=== PATIENT | male | born 1940 ===

== ENCOUNTER 2016-12-17 02:35 | Inpatient (IN) | payer MEDICARE, OTHER, MEDICAID ==
[2016-12-17] MEDS: NS 0.9% 1000 ML* 1,000 ML IV SCH ×3 (04:08→22:34)
[2016-12-17] MEDS ORDERED: Albuterol 2.5 MG/3 ML NEB.SOL* (0.083%) INH PRN (06:00)
[2016-12-17] MEDS: Heparin VIAL(*) 5000 UNITS/ML VIAL (FIVE THOUSAND) SUBCUT SCH ×3 (06:29→21:25)
[2016-12-17 07:40] LABS: Hematocrit 33 % (42-52); Hemoglobin 11.1 g/dl (14.0-18.0); Mean Corpuscular HGB Conc 33 g/dl (31-36); Mean Corpuscular Hemoglobin 31 pg (27-31); Mean Corpuscular Volume 92 fL (80-94); Mean Platelet Volume 9 um3 (7.4-10.4); Red Blood Count 3.62 10^6/ul (4.0-5.4); Red Cell Distribution Width 15 % (10.5-15)
[2016-12-17 07:52] LABS: Albumin 3.7 g/dL (3.2-5.2); BUN/Creatinine Ratio 21.7 (8-20); Calcium 8.7 mg/dL (8.6-10.3); EGFR African American 41.4 (>60); EGFR Non-African American 32.2 (>60); Globulin 2.7 g/dL (2-4); Potassium 3.7 mmol/L (3.5-5.0); Total Bilirubin 0.4 mg/dL (0.2-1.0); Total Protein 6.4 g/dL (6.4-8.9)
--- NOTE | 2016-12-17 08:32 | PN ---
Subjective Date of Service: 12/17/16 Interval History: Pt had been having 4-5 BM's/day x 3 months. Denies abd pain. Was on approx 2 courses of antibiotics last winter for bronchitis. At [facility] he ambulates with a cane. Surrogate-son Gonzalez (lives in [place], [place]) Objective Active Medications: Albuterol (Ventolin Hfa Inhaler*) 2 puff INH QID PRN PRN Reason: SOB/WHEEZING Albuterol (Ventolin 2.5 Mg/3 Ml Neb.Theresa*) 2.5 mg INH Q4H PRN PRN Reason: SOB/WHEEZING Allopurinol (Zyloprim Tab*) 300 mg PO DAILY [facility] Atenolol (Tenormin Tab*) 100 mg PO DAILY [facility] Atorvastatin Calcium (Lipitor*) 40 mg PO DAILY [facility] Cholecalciferol (Vitamin D Tab*) 800 unit PO DAILY [facility] Dicyclomine HCl (Bentyl Cap*) 10 mg PO TID [facility] Diltiazem HCl (Cardizem Cd Cap*) 120 mg PO BID [facility] Dipyridamole/Aspirin (Aggrenox 25/200*) 1 cap.er PO BID [facility] Heparin Sodium (Porcine) (Heparin Vial(*)) 5,000 units SUBCUT Q8HR [facility] Last Admin: 12/17/16 06:29 Dose: 5,000 units Sodium Chloride (Ns 0.9% 1000 Ml*) 1,000 mls @ 125 mls/hr IV PER RATE [facility] Last Admin: 12/17/16 04:08 Dose: 125 mls/hr Isosorbide Mononitrate (Imdur Er Tab*) 30 mg PO DAILY [facility] Mometasone Furoate/Formoterol Fumar (Dulera 100/5 Mdi*) 1 puff INH BID [facility] Montelukast Sodium (Singulair Tab*) 10 mg PO DAILY [facility] Multivitamins (Theragran Tab*) 1 tab PO DAILY [facility] Omeprazole (Prilosec Cap*) 20 mg PO BID [facility] Sertraline HCl (Zoloft*) 25 mg PO DAILY [facility] Terazosin HCl (Hytrin Cap*) 2 mg PO DAILY [facility] Vitamin E (Vitamin E Cap*) 400 unit PO BID [facility] Vital Signs 12/17/16 12/17/16 03:29 03:35 Temperature 98.3 F Pulse Rate 81 Respiratory 20 20 Rate Blood Pressure 153/82 (mmHg) O2 Sat by Pulse 100 Oximetry Oxygen Devices in Use Now: None Appearance: 75 yo M in nAD, AAOx3 Eyes: No Scleral Icterus, PERRLA Ears/Nose/Mouth/Throat: NL Teeth, Lips, Gums, Mucous Membranes Moist Neck: NL Appearance and Movements; NL JVP, Trachea Midline Respiratory: Symmetrical Chest Expansion and Respiratory Effort, Clear to Auscultation Cardiovascular: NL Sounds; No Murmurs; No JVD, RRR Abdominal: - - distended, soft, NR, BS+ Extremities: No Edema, No Clubbing, Cyanosis Skin: No Rash or Ulcers, No Nodules or Sclerosis Neurological: Alert and Oriented x 3, NL Muscle Strength and Tone Result Diagrams: 12/17/16 06:57 12/17/16 06:57 Assess/Plan/Problems-Billing Assessment: 75 yo M with h/o DM2, HTN, CAD, COPD(not on 02), gout, CHF, PSVT, prostate ca(prostatectomy 2013) transferred from [place] for diarrhea and KANU. Recent dx of UTI tx with Cipro - Patient Problems (1) Diarrhea Comment: Stool C. Diff, lactoferin pending. CT reviewed from [place] shows atrophic left kidney, no bowel abn. (2) HTN (hypertension) Comment: SBP's in 150's before AM meds. Cont Cardizem and Adjust Atenolol dose to KANU(from BID to daily.) (3) KANU (acute kidney injury) Comment: due to dehydration , on 12/16/16 creat at 2.6, today down to 2 cont IVF UA at [place] unremarkable (4) COPD (chronic obstructive pulmonary disease) Comment: Not in exacerbation, cont current inhalers (5) Dyslipidemia Comment: cont Lipitor (6) DVT prophylaxis Comment: heparin sc Status and Disposition: inpatient
[2016-12-17] MEDS: Mometasone/Formoter 100/5 MDI INH SCH ×3 (08:35→19:59)
[2016-12-17] MEDS ORDERED: Atenolol TAB* 50 MG PO SCH (09:00)
[2016-12-17] MEDS ORDERED: Albuterol HFA INHALER* 8 gm MDI INH PRN (09:00)
[2016-12-17] MEDS: Vitamin E CAP* 400 UNIT PO SCH ×2 (09:41→21:24)
[2016-12-17] MEDS: Cholecalciferol TAB* 400 UNIT PO SCH (09:41)
[2016-12-17] MEDS: Isosorbide Mononitrate ER TAB* 30 MG PO SCH (09:42)
[2016-12-17] MEDS: Omeprazole CAP* 20 MG PO SCH ×2 (09:42→21:24)
[2016-12-17] MEDS: Vitamin THERAPEUTIC TAB PO SCH (09:42)
[2016-12-17] MEDS: Terazosin CAP* 1 MG PO SCH (09:42)
[2016-12-17] MEDS: Dicyclomine CAP* 10 MG PO SCH ×3 (09:44→21:24)
[2016-12-17] MEDS: Sertraline* 25 MG TAB PO SCH (09:45)
[2016-12-17] MEDS: Diltiazem CD CAP* 120 MG PO SCH ×2 (09:45→21:25)
[2016-12-17] MEDS: Dipyridamole/Aspirin 25/200* CAP.ER PO SCH ×2 (09:46→21:24)
[2016-12-17] MEDS: Atorvastatin* 40 MG TAB PO SCH (09:46)
[2016-12-17] MEDS: Atenolol TAB* 50 MG PO SCH (09:46)
[2016-12-17] MEDS: Allopurinol TAB* 300 MG PO SCH (09:47)
[2016-12-17] MEDS: Montelukast Sodium TAB* 10 MG PO SCH (09:49)
[2016-12-17 15:14] LABS: C Reactive Protein 10.54 mg/L (< 5.00)
--- NOTE | 2016-12-17 15:17 | HP ---
CC: Dr. Maradiaga * HISTORY AND PHYSICAL: DATE OF ADMISSION: 12/17/16 PRIMARY CARE PHYSICIAN: Dr. Maradiaga. CHIEF COMPLAINT: Diarrhea and weakness. HISTORY OF PRESENT ILLNESS: The patient is a 75-year-old gentleman who is a resident of [facility], who presented to [facility] ER today and he complained of diarrhea that he has had for approximately 2 weeks. He states it started 2 weeks ago, woke him up, and he has had about 6 to 7 bowel movements a day that are very watery. Occasionally, it is like pudding. It does not seem to be in any relation to what he is eating. He denies any belly pain. He has nausea but no vomiting. He denies any fevers or chills. His legs ache at times but that is it. Tonight he came in because he could not take it anymore. He has taken Kaopectate a number of times. Sometime in the past, he has been on Imodium when he has had diarrhea, but not this time. Of note, the patient was in the ER a few days ago and was told that he had UTI and placed on Cipro for 3 days, but the diarrhea started before that. He has completed his course of Cipro and his urinalysis was apparently unremarkable at [facility]. PAST MEDICAL HISTORY: Significant for recently diagnosed asthma, type 2 diabetes, hyperlipidemia, coronary artery disease, COPD, arthritis which is gouty, congestive heart failure, CVA, mild dementia, GERD, GI bleed in the past , SVT, prostate cancer. PAST SURGICAL HISTORY: Significant for angioplasty, prostatectomy, umbilical hernia repair. CURRENT MEDICATIONS: 1. Vitamin E 400 units twice daily. 2. Terazosin 2 mg daily. 3. Zoloft 25 mg daily. 4. Omeprazole 20 mg twice daily. 5. [place]-3 fatty acid 1 capsule daily. 6. Multivitamin 1 capsule daily. 7. Singulair 10 mg daily. 8. Imdur 30 mg daily. 9. Furosemide 20 mg daily. 10. Advair Diskus 100/50 one puff twice daily. 11. Diltiazem CD 120 mg daily. 12. Dicyclomine 10 mg 3 times a day. 13. Cholecalciferol 800 units daily. 14. Lipitor 40 mg daily. 15. Atenolol 100 mg twice daily. 16. Aggrenox 1 capsule twice daily. 17. Allopurinol 300 mg daily. 18. Albuterol sulfate 1 puffs 4 times a day and via nebulizer q.4 hours as needed. FAMILY HISTORY: Reviewed and noncontributory. SOCIAL HISTORY: Smokes a few cigarettes a day still, used to smoke 2 packs a day. No alcohol or recreational drug use. He the ID. He is now a resident at [facility]. He is a with 4 sons and 2 daughters. His son, Gonzalez Amaya, is his healthcare proxy. REVIEW OF SYSTEMS: A 14-point review of systems was completed with the patient. All pertinent positives and negatives are in the history of present illness, otherwise it is negative. PHYSICAL EXAMINATION GENERAL: Pleasant gentleman, lying in bed, in no acute distress. VITAL SIGNS: Temperature 98.2 degrees, heart rate 81 beats per minute, respiratory rate 20 breaths per minute, pulse oximetry 100%, blood pressure 153/ 82. HEENT: Normocephalic and atraumatic. Pupils are equal, round and reactive to light. Dry mucous membranes. NECK: Supple. No JVD, bruits, palpable thyroid or lymphadenopathy. CHEST: Clear to auscultation and percussion bilaterally. CARDIOVASCULAR: S1, S2 appreciated. ABDOMEN: Positive bowel sounds in all 4 quadrants. Soft, nontender, nondistended. EXTREMITIES: No cyanosis or clubbing. Mild edema. +2 pulses bilaterally. NEUROLOGIC: Alert and oriented x3. Moves all extremities. SKIN: No rashes. No distinct abnormalities. LABORATORY DATA: From the [facility]: Sodium 134, potassium 3.6, chloride 103, CO2 17, BUN 54, creatinine 2.6, glucose is 177. White count 6.62 , hemoglobin 11.5, hematocrit 32.3, his platelets are 120,000. His urinalysis is unremarkable. Stool for occult blood is negative. CT of abdomen and pelvis was interpreted by the radiologist as no findings to explain the patient's symptoms. Small right lower lobe infiltrate or atelectasis, fatty liver, atrophic kidney, and degenerative changes of the spine. ASSESSMENT AND PLAN: 1. Diarrhea, has been going on for 2 weeks. Unclear if it is infectious or not , but that is a bit long for an infectious process. He says he does not have a history of any GI problems, but he is on dicyclomine which implies that he may have IBS. For now, we will get a stool for O and P, C and S, and fecal leukocytes. I will hydrate him with normal saline at 125 cc an hour, but I will hold off on any Imodium at this time until we get some labs results back. Consider GI consult if no improvement and no definitive diagnosis can be made. 2. Acute kidney injury, almost certainly secondary to dehydration. We will rehydrate and check labs in the a.m. 3. History of cerebrovascular accident. Continue Aggrenox. Continue Lipitor. 4. Questionable history of diabetes. His sugar is somewhat high, but he is not on any medications that I can see. We will check hemoglobin A1c. 5. Asthma. Continue albuterol and Singulair. Appears stable. 6. Depression. Continue Zoloft. 7. Gout, stable. Continue allopurinol. 8. FEN. We will place on regular diet depending on his sugars. Normal saline at 100 cc an hour. 9. DVT prophylaxis. Heparin subcu. 10. The patient is a full code. TIME SPENT: Over 75 minutes were spent on this H and P, more than 40 minutes of which were spent in direct [id number] contact with the patient in evaluation, physical exam, counseling, and coordination of care. [id number]/[facility] #: [id number] SKY
[2016-12-18 05:14] LABS: Hematocrit 30 % (42-52); Hemoglobin 10.2 g/dl (14.0-18.0); Mean Corpuscular HGB Conc 34 g/dl (31-36); Mean Corpuscular Hemoglobin 31 pg (27-31); Mean Corpuscular Volume 92 fL (80-94); Mean Platelet Volume 8 um3 (7.4-10.4); Red Cell Distribution Width 16 % (10.5-15)
[2016-12-18 05:36] LABS: BUN/Creatinine Ratio 18.3 (8-20); Calcium 8.5 mg/dL (8.6-10.3); EGFR African American 52.9 (>60); EGFR Non-African American 41.2 (>60); Potassium 3.7 mmol/L (3.5-5.0)
[2016-12-18] MEDS: Heparin VIAL(*) 5000 UNITS/ML VIAL (FIVE THOUSAND) SUBCUT SCH ×3 (05:39→22:08)
[2016-12-18] MEDS: Omeprazole CAP* 20 MG PO SCH ×2 (07:55→22:08)
[2016-12-18] MEDS: Vitamin E CAP* 400 UNIT PO SCH ×2 (07:55→22:07)
[2016-12-18] MEDS: Terazosin CAP* 1 MG PO SCH (07:56)
[2016-12-18] MEDS: Dicyclomine CAP* 10 MG PO SCH ×3 (07:56→22:07)
[2016-12-18] MEDS: Dipyridamole/Aspirin 25/200* CAP.ER PO SCH ×2 (07:56→22:07)
[2016-12-18] MEDS: Vitamin THERAPEUTIC TAB PO SCH (07:56)
[2016-12-18] MEDS: Isosorbide Mononitrate ER TAB* 30 MG PO SCH (07:56)
[2016-12-18] MEDS: Cholecalciferol TAB* 400 UNIT PO SCH (07:57)
[2016-12-18] MEDS: Atenolol TAB* 50 MG PO SCH (07:57)
[2016-12-18] MEDS: Diltiazem CD CAP* 120 MG PO SCH ×2 (07:57→22:07)
[2016-12-18] MEDS: Montelukast Sodium TAB* 10 MG PO SCH (07:57)
[2016-12-18] MEDS: Atorvastatin* 40 MG TAB PO SCH (07:57)
[2016-12-18] MEDS: Allopurinol TAB* 300 MG PO SCH (07:57)
[2016-12-18] MEDS: Sertraline* 25 MG TAB PO SCH (07:57)
[2016-12-18] MEDS: Mometasone/Formoter 100/5 MDI INH SCH ×2 (09:13→20:59)
[2016-12-18] MEDS: Lactobacillus Acidophilu (GG)* 1 CAP CAP PO SCH ×2 (10:14→22:07)
--- NOTE | 2016-12-18 11:52 | PN ---
Subjective Date of Service: 12/18/16 Interval History: pt feels better, denies abd pain, las BM yesterday. Had been ambulating with a cane to bathroom Objective Active Medications: Albuterol (Ventolin Hfa Inhaler*) 2 puff INH QID PRN PRN Reason: SOB/WHEEZING Albuterol (Ventolin 2.5 Mg/3 Ml Neb.Theresa*) 2.5 mg INH Q4H PRN PRN Reason: SOB/WHEEZING Allopurinol (Zyloprim Tab*) 300 mg PO DAILY [facility] Last Admin: 12/18/16 07:57 Dose: 300 mg Atenolol (Tenormin Tab*) 100 mg PO DAILY [facility] Last Admin: 12/18/16 07:57 Dose: 100 mg Atorvastatin Calcium (Lipitor*) 40 mg PO DAILY [facility] Last Admin: 12/18/16 07:57 Dose: 40 mg Cholecalciferol (Vitamin D Tab*) 800 unit PO DAILY [facility] Last Admin: 12/18/16 07:57 Dose: 800 unit Dicyclomine HCl (Bentyl Cap*) 10 mg PO TID [facility] Last Admin: 12/18/16 07:56 Dose: 10 mg Diltiazem HCl (Cardizem Cd Cap*) 120 mg PO BID [facility] Last Admin: 12/18/16 07:57 Dose: 120 mg Dipyridamole/Aspirin (Aggrenox 25/200*) 1 cap.er PO BID [facility] Last Admin: 12/18/16 07:56 Dose: 1 cap.er Heparin Sodium (Porcine) (Heparin Vial(*)) 5,000 units SUBCUT Q8HR [facility] Last Admin: 12/18/16 05:39 Dose: 5,000 units Isosorbide Mononitrate (Imdur Er Tab*) 30 mg PO DAILY [facility] Last Admin: 12/18/16 07:56 Dose: 30 mg Lactobacillus Rhamnosus (Culturelle*) 1 cap PO BID [facility] Last Admin: 12/18/16 10:14 Dose: 1 cap Mometasone Furoate/Formoterol Fumar (Dulera 100/5 Mdi*) 1 puff INH BID [facility] Last Admin: 12/18/16 09:13 Dose: 1 puff Montelukast Sodium (Singulair Tab*) 10 mg PO DAILY [facility] Last Admin: 06/30/17 07:57 Dose: 10 mg Multivitamins (Theragran Tab*) 1 tab PO DAILY [facility] Last Admin: 12/18/16 07:56 Dose: 1 tab Omeprazole (Prilosec Cap*) 20 mg PO BID [facility] Last Admin: 12/18/16 07:55 Dose: 20 mg Sertraline HCl (Zoloft*) 25 mg PO DAILY [facility] Last Admin: 12/18/16 07:57 Dose: 25 mg Terazosin HCl (Hytrin Cap*) 2 mg PO DAILY [facility] Last Admin: 12/18/16 07:56 Dose: 2 mg Vitamin E (Vitamin E Cap*) 400 unit PO BID [facility] Last Admin: 12/18/16 07:55 Dose: 400 unit Vital Signs 12/17/16 12/17/16 12/17/16 13:52 15:29 19:37 Temperature 97.9 F 99.3 F Pulse Rate 73 79 Respiratory 16 16 20 Rate Blood Pressure 129/68 133/62 (mmHg) O2 Sat by Pulse 97 97 Oximetry 12/17/16 12/17/16 12/17/16 20:00 20:02 21:24 Temperature Pulse Rate 87 Respiratory 26 24 Rate Blood Pressure (mmHg) O2 Sat by Pulse 98 Oximetry 12/17/16 12/17/16 12/18/16 23:09 23:24 03:15 Temperature 98.3 F 98.8 F Pulse Rate 84 80 Respiratory 16 24 16 Rate Blood Pressure 155/75 155/72 (mmHg) O2 Sat by Pulse 97 97 Oximetry 12/18/16 12/18/16 12/18/16 07:53 07:56 09:15 Temperature 98.1 F Pulse Rate 81 82 Respiratory 16 16 20 Rate Blood Pressure 155/68 (mmHg) O2 Sat by Pulse 98 97 Oximetry 12/18/16 09:56 Temperature Pulse Rate Respiratory 17 Rate Blood Pressure (mmHg) O2 Sat by Pulse Oximetry Oxygen Devices in Use Now: None Appearance: 75 yo M in nAD, AAOx3 Eyes: No Scleral Icterus, PERRLA Ears/Nose/Mouth/Throat: NL Teeth, Lips, Gums, Mucous Membranes Moist Neck: NL Appearance and Movements; NL JVP, Trachea Midline Respiratory: Symmetrical Chest Expansion and Respiratory Effort, Clear to Auscultation Cardiovascular: NL Sounds; No Murmurs; No JVD, RRR Abdominal: NL Sounds; No Tenderness; No Distention, No Hepatosplenomegaly Lymphatic: No Cervical Adenopathy Extremities: No Edema, No Clubbing, Cyanosis Skin: No Rash or Ulcers, No Nodules or Sclerosis Neurological: Alert and Oriented x 3, NL Muscle Strength and Tone Result Diagrams: 12/18/16 04:45 12/18/16 04:44 Microbiology and Other Data: Microbiology 12/17/16 18:20 Stool Gross Appearance - Final Stool 12/17/16 18:20 Stool Gross Appearance - Final Stool Stool Lactoferrin - Final 12/17/16 18:20 Stool Gross Appearance - Final Stool C. difficile DNA Amplification - Final 027 Presumptive NEGATIVE Toxigenic C.diff NEGATIVE Assess/Plan/Problems-Billing Assessment: 75 yo M with h/o DM2, HTN, CAD, COPD(not on 02), gout, CHF, PSVT, prostate ca(prostatectomy 2013) transferred from [place] for diarrhea and KANU. Recent dx of UTI tx with Cipro - Patient Problems (1) Diarrhea Comment: Stool C. Diff neg. Fecal lactoferin positive. Diarrrhea improved on probiotics. suspect antibiotic associated CT reviewed from [place] shows atrophic left kidney, no bowel abn. (2) HTN (hypertension) Comment: SBP's in 150's before AM meds. Cont Cardizem and adjusted Atenolol dose to KANU(from BID to daily.) (3) KANU (acute kidney injury) Comment: due to dehydration , on 12/16/16 creat at 2.6, today down to 1.6 cont IVF UA at [place] unremarkable (4) COPD (chronic obstructive pulmonary disease) Comment: Not in exacerbation, cont current inhalers (5) Dyslipidemia Comment: cont Lipitor (6) DVT prophylaxis Comment: heparin sc Status and Disposition: inpatient, plan to d/c to [facility] in AM
[2016-12-18] MEDS: NS 0.9% 1000 ML* 1,000 ML IV SCH ×2 (13:00→22:06)
--- NOTE | 2016-12-18 20:36 | RAD ---
Indication: Recent onset shortness of breath. COPD. Comparison: No relevant prior exams available on the [facility] PACS for comparison. Technique: Upright AP 2006 hours Report: Elevated lung volumes and both diffuse mild prominence of the interstitial markings and patchy rarefaction of the mid to upper lung zone interstitial markings. No focal pulmonary lesion, compelling alveolar consolidation, pleural effusion, pneumothorax. Negative for cardiomegaly. Unremarkable central pulmonary vasculature. Mildly tortuous descending thoracic aorta. Suggestion of fixation hardware at the RIGHT humeral head. IMPRESSION: Stigmata of obstructive lung disease. No acute pulmonary or cardiac process evident.
[2016-12-19] MEDS: Heparin VIAL(*) 5000 UNITS/ML VIAL (FIVE THOUSAND) SUBCUT SCH ×2 (05:41→12:18)
[2016-12-19 06:13] LABS: BUN/Creatinine Ratio 13.5 (8-20); Calcium 8.8 mg/dL (8.6-10.3); EGFR African American 56.5 (>60); EGFR Non-African American 43.9 (>60); Potassium 3.9 mmol/L (3.5-5.0)
[2016-12-19] MEDS: Isosorbide Mononitrate ER TAB* 30 MG PO SCH (07:56)
[2016-12-19] MEDS: Atenolol TAB* 50 MG PO SCH (07:56)
[2016-12-19] MEDS: Dipyridamole/Aspirin 25/200* CAP.ER PO SCH (07:56)
[2016-12-19] MEDS: Terazosin CAP* 1 MG PO SCH (07:56)
[2016-12-19] MEDS: Atorvastatin* 40 MG TAB PO SCH (07:56)
[2016-12-19] MEDS: Lactobacillus Acidophilu (GG)* 1 CAP CAP PO SCH (07:56)
[2016-12-19] MEDS: Vitamin E CAP* 400 UNIT PO SCH (07:56)
[2016-12-19] MEDS: Dicyclomine CAP* 10 MG PO SCH ×2 (07:56→13:10)
[2016-12-19] MEDS: Cholecalciferol TAB* 400 UNIT PO SCH (07:56)
[2016-12-19] MEDS: Omeprazole CAP* 20 MG PO SCH (07:56)
[2016-12-19] MEDS: Vitamin THERAPEUTIC TAB PO SCH (07:57)
[2016-12-19] MEDS: Diltiazem CD CAP* 120 MG PO SCH (07:57)
[2016-12-19] MEDS: Sertraline* 25 MG TAB PO SCH (07:57)
[2016-12-19] MEDS: Montelukast Sodium TAB* 10 MG PO SCH (07:57)
[2016-12-19] MEDS: Allopurinol TAB* 300 MG PO SCH (07:57)
[2016-12-19 08:05] VITALS: BP 151/78
[2016-12-19] MEDS: Mometasone/Formoter 100/5 MDI INH SCH ×2 (09:00→20:52)
--- NOTE | 2016-12-20 11:27 | DS ---
CC: Dr. Maradiaga* DISCHARGE SUMMARY: DATE OF ADMISSION: 12/17/16 DATE OF DISCHARGE: 12/19/16 PRIMARY CARE PROVIDER: Dr. Maradiaga. DISCHARGE DIAGNOSES: 1. Acute renal failure due to dehydration and diarrhea. 2. Diarrhea, most likely antibiotic associated that resolved after probiotic treatment. SECONDARY DIAGNOSES: 1. Diet-controlled diabetes. 2. Asthma. 3. Hyperlipidemia. 4. Coronary artery disease. 5. Gouty arthritis. 6. History of congestive heart failure. 7. History of cerebrovascular accident. 8. Mild dementia. 9. Gastroesophageal reflux disease. 10. History of prostate cancer. MEDICATIONS AT DISCHARGE: 1. Probiotic, Culturelle 1 tablet p.o. b.i.d. 2. Albuterol two puffs 4 times a day p.r.n. 3. Imdur 30 mg daily. 4. Allopurinol 300 mg daily. 5. Aspirin with dipyridamole, which is Aggrenox 1 capsule b.i.d. 6. Atenolol 100 mg b.i.d. 7. Lipitor 40 mg daily. 8. Vitamin D 800 units daily. 9. Bentyl 10 mg t.i.d. p.r.n. 10. Diltiazem ER 120 mg b.i.d. 11. Advair 100/50 one inhalation b.i.d. 12. Lasix 20 mg daily to be restarted on 12/24/16. 13. Singulair 10 mg daily. 14. Multivitamin 1 tablet daily. 15. [place]-3 fatty acids 1 capsule daily. 16. Prilosec 20 mg b.i.d. 17. Zoloft 25 mg daily. 18. Terazosin 2 mg daily. 19. Vitamin E 400 units b.i.d. LABORATORY DATA AND STUDIES PERFORMED DURING THE HOSPITAL STAY: Include: On 12/19/16, sodium of 138, potassium 3.9, chloride 114, carbon dioxide 18, BUN 25, creatinine 1.55. Hemoglobin A1c was 7.2 noted on 12/17/16. CBC: White blood cell count of 7.0, hemoglobin 10.2, hematocrit of 30, and platelets of 113. Portable chest x-ray noted on 12/18/16. Impression: "Stigmata of obstructive lung disease. No acute pulmonary or cardiac process evident." HOSPITALIZATION COURSE: Mr. Daniel Amaya is a 75-year-old male with history of mild dementia who is a resident of [facility] and who has had problems with diarrhea for approximately a month now. Recently that was exacerbated by use of ciprofloxacin for urinary tract infection. The patient presented with complaints of generalized weakness to [facility]. Due to no bed available at [facility], the patient was transferred to [facility] for further evaluation. He was noted to have acute kidney injury, most likely due to dehydration with creatinine of 2.6 at presentation. Urinalysis obtained at [facility] was unremarkable. His diarrhea resolved after ciprofloxacin was discontinued and probiotics were started. He continued on to be treated with intravenous fluids until the time of discharge where his creatinine was down to 1.55. I suspect that his creatinine will improve more so within the next couple of days. His Lasix was held throughout his hospitalization and it was recommended for the patient to have it restarted approximately 5 days after his hospital stay. Stool studies performed showed negative for C. diff, negative for Shiga toxin, Cryptosporidium and Giardia. It was positive for fecal lactoferrin. After discharge the patient was recommended to follow with his primary care provider in approximately 4 to 7 days. PHYSICAL EXAMINATION AT THE TIME OF DISCHARGE: Vitals Signs: Blood pressure 151/78, heart rate of 74, respiratory rate 28, oxygen saturation 96% on room air , temperature of 98.6. General: This is a very pleasant 75-year-old male who is in no acute distress. Alert, awake and oriented x3. HEENT: Head is atraumatic, normocephalic. Eyes: Pupils equal and reactive to light and accommodation. Oropharynx clear. Mucosa moist. Neck: Supple. No JVD. No bruits bilaterally. Cardiovascular: Regular rate and rhythm. No murmurs. Respiratory: Clear to auscultation bilaterally. Abdomen: Soft, nontender. Bowel sounds present in all 4 quadrants. Extremities: There is no edema. Pulses +2 bilaterally. No clubbing or cyanosis. Neuro Evaluation: Speech clear. Cranial nerves II through XII grossly intact. Motor strength is 5/5 bilaterally. Please note this is a short summary of the patient's hospitalization. Please refer to further medical records for details. TIME SPENT: Approximately 40 minutes was spent on the patient's discharge. [id number]/[facility] #: [id number] [facility]
== END 2016-12-20 04:49 | DRG 683 ==
LOC: MED 03:10
PROVIDERS: ADMIT Internal Medicine; ATTEND Internal Medicine
DX: N17.9 Acute kidney failure, unspecified (principal); K52.1 Toxic gastroenteritis and colitis; I50.9 Heart failure, unspecified; F03.90 Unspecified dementia, unspecified severity, without behavioral disturbance, psychotic disturbance, mood disturbance, and anxiety; J44.9 Chronic obstructive pulmonary disease, unspecified; E86.0 Dehydration; T36.95XA Adverse effect of unspecified systemic antibiotic, initial encounter; Y92.9 Unspecified place or not applicable; X58.XXXA Exposure to other specified factors, initial encounter; E11.9 Type 2 diabetes mellitus without complications; E78.5 Hyperlipidemia, unspecified; I25.10 Atherosclerotic heart disease of native coronary artery without angina pectoris; M10.9 Gout, unspecified; K21.9 Gastro-esophageal reflux disease without esophagitis; F32.9 Major depressive disorder, single episode, unspecified; K76.0 Fatty (change of) liver, not elsewhere classified; F17.210 Nicotine dependence, cigarettes, uncomplicated; Z86.73 Personal history of transient ischemic attack (TIA), and cerebral infarction without residual deficits; Z85.46 Personal history of malignant neoplasm of prostate; Z79.01 Long term (current) use of anticoagulants; Z79.899 Other long term (current) drug therapy
CPT/HCPCS: 36415; 71010; 80048; 80053; 83036; 83630; 85025; 85610; 85730; 86140; 87045; 87046; 87177; 87209; 87328; 87329; 87493; 87899; 94640; A9270-GY; J1644

== ENCOUNTER 2020-07-03 02:17 | Inpatient (IN) ==
[2020-07-03 03:34] LABS: Urine Appearance Cloudy; Urine Bilirubin Negative (Negative); Urine Blood Negative (Negative); Urine Color Yellow; Urine Glucose Negative (Negative); Urine Ketones Negative (Negative); Urine Nitrite Negative (Negative); Urine Protein 2+(100 mg/dL) (Negative); Urine Specific Gravity 1.015 (1.010-1.030); Urine Urobilinogen Negative (Negative)
[2020-07-03 03:40] LABS: Urine Bacteria 1+ (Absent); Urine Red Blood Cell Trace(0-2/hpf) (Absent); Urine Renal Epithelial Cells Present (Absent); Urine Squamous Epithelial Cell Present (Absent); Urine White Blood Cell 3+(>20/hpf) (Absent)
[2020-07-03] MEDS ORDERED: Dextrose 50% Syringe 50 ml 25 GM/50 ML SYRINGE IV PUSH PRN (04:53)
[2020-07-03] MEDS ORDERED: Enoxaparin 40 MG/0.4 ML SYR SUBCUT SCH (06:00)
[2020-07-03 07:07] LABS: ABS Basophils 0.1 10^3/ul (0-0.2); ABS Eosinophils 0.3 10^3/ul (0-0.6); ABS Lymphocytes 0.9 10^3/ul (1.0-4.8); Eosinophil % 3.6 %; Hematocrit 38 % (42-52); Hemoglobin 13.1 g/dL (14.0-18.0); Mean Corpuscular HGB Conc 34 g/dL (31-36); Mean Corpuscular Hemoglobin 33 pg (27-31); Mean Corpuscular Volume 95 fL (80-94); Mean Platelet Volume 8.3 fL (7.4-10.4); Platelet Count 130 10^3/uL (150-450); Red Blood Count 4.02 10^6 /uL (4.18-5.48); Red Cell Distribution Width 14 % (10-15); White Blood Count 8.3 10^3/uL (3.5-10.8)
[2020-07-03] MEDS ORDERED: Lactated Ringers 1000 ml BAG 1,000 ML IV ONE (07:16)
[2020-07-03 07:19] LABS: ALT 46 U/L (7-52); AST 60 U/L (13-39); Albumin 4.1 g/dL (3.2-5.2); Albumin/Globulin Ratio 1.8 (1-3); Alkaline Phosphatase 100 U/L (34-104); Anion Gap 9 mmol/L (2-11); BUN/Creatinine Ratio 20.9 (8-20); Blood Urea Nitrogen 23 mg/dL (6-24); C Reactive Protein 5.81 mg/L (<8.01); CO2 Carbon Dioxide 23 mmol/L (22-32); Calcium 9.4 mg/dL (8.6-10.3); Chloride 105 mmol/L (101-111); EGFR African American 78.1 (>60); EGFR Non-African American 64.6 (>60); Globulin 2.3 g/dL (2-4); Glucose 156 mg/dL (70-100); Magnesium 1.7 mg/dL (1.9-2.7); Potassium 4.1 mmol/L (3.5-5.0); Sodium 137 mmol/L (135-145); Total Protein 6.4 g/dL (6.4-8.9)
[2020-07-03] MEDS ORDERED: Al Hydrox/Mg Hydrox/Simet LIQ 30 ML UDC PO PRN (08:14)
[2020-07-03] MEDS: Mometasone/Formoter 100/5 MDI INH SCH ×2 (08:29→19:57)
[2020-07-03] MEDS ORDERED: Fluticasone-Salmeterol 100-50 DISKUS INH SCH (09:00)
[2020-07-03] MEDS: Cholecalciferol (VIT D3) 1,000 unit TAB PO SCH (09:21)
[2020-07-03] MEDS: Isosorbide Mononit ER 30mg TAB PO SCH (09:23)
[2020-07-03] MEDS: Vitamin THERAPEUTIC TAB PO SCH (09:25)
[2020-07-03] MEDS: CMCS:OMEGA-3 FATTY ACID 1000 mg(NF) PO SCH (09:25)
[2020-07-03] MEDS: Magnesium Hydroxide LIQ 30 ML UDC PO SCH ×2 (09:26→20:57)
[2020-07-03] MEDS: Clotrimazole 1% CREAM 30 gm TOPICAL SCH ×2 (09:32→23:44)
[2020-07-03 09:33] LABS: Creatine Kinase 62 U/L (10-223)
[2020-07-03] MEDS ORDERED: Magnesium Sulfate IV 3 GM in NS 0.9% 100 ml BAG 100 ML IVPB ONE (10:00)
[2020-07-03] MEDS ORDERED: Iodixanol (CONTRAST) 320 MG/ML 100 ML SDV IV ONE (11:01)
[2020-07-03] MEDS ORDERED: LORazepam 2 mg VIAL 1 ml IV PUSH ONE (11:08)
[2020-07-03] MEDS ORDERED: Lorazepam PYXIS KEY PRN (11:08)
[2020-07-03 11:09] LABS: TSH Ultra Thyroid Stim Horm 2.09 mcIU/mL (0.34-5.60)
[2020-07-03 11:14] LABS: Cholesterol 122 mg/dL; HDL Cholesterol 27.1 mg/dL; Triglycerides 444 mg/dL; Troponin I 0.01 ng/mL (<0.03)
[2020-07-03 11:20] LABS: Folate > 20.00 ng/mL (>3.99)
[2020-07-03 11:21] LABS: Vitamin B12 492 pg/mL (180-914)
[2020-07-03 11:25] LABS: Vitamin D Total 25(OH) 30.8 ng/mL (20-50)
[2020-07-03 12:36] LABS: LDL Cholesterol Direct 24 mg/dL
[2020-07-03] MEDS ORDERED: NS 0.9% 1000 ml BAG 1,000 ML IV SCH (16:15)
[2020-07-04 05:58] LABS: Hematocrit 37 % (42-52); Hemoglobin 12.7 g/dL (14.0-18.0); Mean Corpuscular HGB Conc 35 g/dL (31-36); Mean Corpuscular Hemoglobin 33 pg (27-31); Mean Corpuscular Volume 94 fL (80-94); Mean Platelet Volume 8.2 fL (7.4-10.4); Platelet Count 126 10^3/uL (150-450); Red Blood Count 3.89 10^6 /uL (4.18-5.48); Red Cell Distribution Width 14 % (10-15); White Blood Count 5.8 10^3/uL (3.5-10.8)
[2020-07-04] MEDS ORDERED: cefTRIAXone 1 gm/50 mL NS BAG 1 GM/50 ML BAG IVPB SCH (06:00)
[2020-07-04 06:20] LABS: Albumin 3.7 g/dL (3.2-5.2); Albumin/Globulin Ratio 1.3 (1-3); Calcium 8.4 mg/dL (8.6-10.3); EGFR Non-African American 65.3 (>60); Globulin 2.8 g/dL (2-4); Potassium 3.5 mmol/L (3.5-5.0); Total Bilirubin 0.3 mg/dL (0.2-1.0); Total Protein 6.5 g/dL (6.4-8.9)
[2020-07-04] MEDS: Magnesium Hydroxide LIQ 30 ML UDC PO SCH ×3 (07:59→22:26)
[2020-07-04] MEDS: Cholecalciferol (VIT D3) 1,000 unit TAB PO SCH (08:00)
[2020-07-04] MEDS: Isosorbide Mononit ER 30mg TAB PO SCH (08:00)
[2020-07-04] MEDS: CMCS:OMEGA-3 FATTY ACID 1000 mg(NF) PO SCH (08:00)
[2020-07-04] MEDS: Clotrimazole 1% CREAM 30 gm TOPICAL SCH ×2 (08:01→22:28)
[2020-07-04] MEDS: Vitamin THERAPEUTIC TAB PO SCH (08:01)
[2020-07-04 08:33] LABS: Magnesium 2.3 mg/dL (1.9-2.7)
[2020-07-04] MEDS: Mometasone/Formoter 100/5 MDI INH SCH ×2 (09:01→20:19)
[2020-07-04] MEDS: Enoxaparin 40 MG/0.4 ML SYR SUBCUT SCH (16:33)
[2020-07-05 05:54] LABS: ABS Basophils 0.1 10^3/ul (0-0.2); ABS Eosinophils 0.3 10^3/ul (0-0.6); ABS Lymphocytes 1.7 10^3/ul (1.0-4.8); ABS Monocytes 0.7 10^3/ul (0-0.8); ABS Neutrophils 4.1 10^3/ul (1.5-7.7); Eosinophil % 3.8 %; Hematocrit 38 % (42-52); Hemoglobin 12.8 g/dL (14.0-18.0); Lymphocyte % 25.3 %; Mean Corpuscular HGB Conc 34 g/dL (31-36); Mean Corpuscular Hemoglobin 32 pg (27-31); Mean Corpuscular Volume 95 fL (80-94); Mean Platelet Volume 8.5 fL (7.4-10.4); Platelet Count 122 10^3/uL (150-450); Red Blood Count 3.97 10^6 /uL (4.18-5.48); Red Cell Distribution Width 14 % (10-15); White Blood Count 6.9 10^3/uL (3.5-10.8)
[2020-07-05] MEDS: Mometasone/Formoter 100/5 MDI INH SCH ×2 (08:11→20:51)
[2020-07-05] MEDS: Cholecalciferol (VIT D3) 1,000 unit TAB PO SCH (08:21)
[2020-07-05] MEDS: Vitamin THERAPEUTIC TAB PO SCH (08:21)
[2020-07-05] MEDS: CMCS:OMEGA-3 FATTY ACID 1000 mg(NF) PO SCH (08:22)
[2020-07-05] MEDS: Isosorbide Mononit ER 30mg TAB PO SCH (08:22)
[2020-07-05] MEDS: Magnesium Hydroxide LIQ 30 ML UDC PO SCH ×2 (08:27→21:08)
[2020-07-05] MEDS: Clotrimazole 1% CREAM 30 gm TOPICAL SCH ×2 (08:45→21:07)
[2020-07-05] MEDS: Enoxaparin 40 MG/0.4 ML SYR SUBCUT SCH (15:27)
[2020-07-06] MEDS: Mometasone/Formoter 100/5 MDI INH SCH ×2 (08:11→20:35)
[2020-07-06] MEDS: Vitamin THERAPEUTIC TAB PO SCH (08:12)
[2020-07-06] MEDS: Isosorbide Mononit ER 30mg TAB PO SCH (08:12)
[2020-07-06] MEDS: Cholecalciferol (VIT D3) 1,000 unit TAB PO SCH (08:12)
[2020-07-06] MEDS: CMCS:OMEGA-3 FATTY ACID 1000 mg(NF) PO SCH (08:14)
[2020-07-06] MEDS: Magnesium Hydroxide LIQ 30 ML UDC PO SCH ×2 (08:15→20:50)
[2020-07-06] MEDS: Clotrimazole 1% CREAM 30 gm TOPICAL SCH ×2 (09:26→20:49)
[2020-07-06] MEDS: Enoxaparin 40 MG/0.4 ML SYR SUBCUT SCH (12:47)
[2020-07-07] MEDS: Mometasone/Formoter 100/5 MDI INH SCH ×2 (07:59→22:03)
[2020-07-07] MEDS: Cholecalciferol (VIT D3) 1,000 unit TAB PO SCH (09:58)
[2020-07-07] MEDS: Isosorbide Mononit ER 30mg TAB PO SCH (09:58)
[2020-07-07] MEDS: Vitamin THERAPEUTIC TAB PO SCH (09:58)
[2020-07-07] MEDS: Clotrimazole 1% CREAM 30 gm TOPICAL SCH ×2 (09:59→22:10)
[2020-07-07] MEDS: Magnesium Hydroxide LIQ 30 ML UDC PO SCH ×2 (09:59→22:15)
[2020-07-07] MEDS: CMCS:OMEGA-3 FATTY ACID 1000 mg(NF) PO SCH (09:59)
[2020-07-07] MEDS: Enoxaparin 40 MG/0.4 ML SYR SUBCUT SCH (15:21)
[2020-07-08] MEDS: Mometasone/Formoter 100/5 MDI INH SCH ×2 (07:47→19:43)
[2020-07-08] MEDS: Clotrimazole 1% CREAM 30 gm TOPICAL SCH ×2 (13:07→20:50)
[2020-07-08] MEDS: Cholecalciferol (VIT D3) 1,000 unit TAB PO SCH (13:08)
[2020-07-08] MEDS: Magnesium Hydroxide LIQ 30 ML UDC PO SCH ×2 (13:08→20:54)
[2020-07-08] MEDS: Vitamin THERAPEUTIC TAB PO SCH (13:08)
[2020-07-08] MEDS: Isosorbide Mononit ER 30mg TAB PO SCH (13:08)
[2020-07-08] MEDS: CMCS:OMEGA-3 FATTY ACID 1000 mg(NF) PO SCH (13:08)
[2020-07-08] MEDS: Enoxaparin 40 MG/0.4 ML SYR SUBCUT SCH (15:18)
[2020-07-09] MEDS: Mometasone/Formoter 100/5 MDI INH SCH ×2 (07:42→20:30)
[2020-07-09] MEDS: Cholecalciferol (VIT D3) 1,000 unit TAB PO SCH (08:38)
[2020-07-09] MEDS: Isosorbide Mononit ER 30mg TAB PO SCH ×2 (08:39→09:23)
[2020-07-09] MEDS: Magnesium Hydroxide LIQ 30 ML UDC PO SCH ×2 (08:42→22:55)
[2020-07-09] MEDS: Clotrimazole 1% CREAM 30 gm TOPICAL SCH ×2 (08:43→20:54)
[2020-07-09] MEDS: CMCS:OMEGA-3 FATTY ACID 1000 mg(NF) PO SCH (08:45)
[2020-07-09] MEDS: Vitamin THERAPEUTIC TAB PO SCH (08:45)
[2020-07-09] MEDS: Enoxaparin 40 MG/0.4 ML SYR SUBCUT SCH (13:25)
[2020-07-10 07:05] LABS: ABS Basophils 0.1 10^3/ul (0-0.2); ABS Eosinophils 0.1 10^3/ul (0-0.6); ABS Lymphocytes 1.8 10^3/ul (1.0-4.8); ABS Monocytes 1.1 10^3/ul (0-0.8); ABS Neutrophils 6.6 10^3/ul (1.5-7.7); Eosinophil % 0.8 %; Hematocrit 41 % (42-52); Lymphocyte % 18.6 %; Mean Corpuscular HGB Conc 34 g/dL (31-36); Mean Corpuscular Hemoglobin 32 pg (27-31); Mean Corpuscular Volume 96 fL (80-94); Mean Platelet Volume 9.4 fL (7.4-10.4); Platelet Count 161 10^3/uL (150-450); Red Blood Count 4.33 10^6 /uL (4.18-5.48); Red Cell Distribution Width 14 % (10-15); White Blood Count 9.6 10^3/uL (3.5-10.8)
[2020-07-10 07:21] LABS: Calcium 9.1 mg/dL (8.6-10.3); EGFR African American 66.2 (>60); EGFR Non-African American 54.7 (>60); Potassium 4.3 mmol/L (3.5-5.0)
[2020-07-10] MEDS: Mometasone/Formoter 100/5 MDI INH SCH ×2 (09:20→21:06)
[2020-07-10] MEDS: Cholecalciferol (VIT D3) 1,000 unit TAB PO SCH (10:05)
[2020-07-10] MEDS: Vitamin THERAPEUTIC TAB PO SCH (10:06)
[2020-07-10] MEDS: Clotrimazole 1% CREAM 30 gm TOPICAL SCH ×2 (10:07→19:29)
[2020-07-10] MEDS: Isosorbide Mononit ER 30mg TAB PO SCH ×2 (10:07→12:54)
[2020-07-10] MEDS: Magnesium Hydroxide LIQ 30 ML UDC PO SCH ×2 (10:12→19:29)
[2020-07-10] MEDS: CMCS:OMEGA-3 FATTY ACID 1000 mg(NF) PO SCH (10:12)
[2020-07-10] MEDS: Enoxaparin 40 MG/0.4 ML SYR SUBCUT SCH (12:54)
[2020-07-10] MEDS: Lactated Ringers 1000 ml BAG 1,000 ML IV SCH (13:08)
[2020-07-11] MEDS: Lactated Ringers 1000 ml BAG 1,000 ML IV SCH (00:56)
[2020-07-11] MEDS: Magnesium Hydroxide LIQ 30 ML UDC PO SCH ×2 (07:17→19:37)
[2020-07-11 08:06] LABS: Calcium 9.2 mg/dL (8.6-10.3); EGFR African American 68.7 (>60); EGFR Non-African American 56.8 (>60); Potassium 4.3 mmol/L (3.5-5.0)
[2020-07-11 08:18] LABS: C Reactive Protein 21.64 mg/L (<8.01)
[2020-07-11 08:22] LABS: ABS Lymphocytes 1.1 10^3/ul (1.0-4.8); ABS Monocytes 0.9 10^3/ul (0-0.8); ABS Neutrophils 5.9 10^3/ul (1.5-7.7); Eosinophil % 0.4 %; Hematocrit 41 % (42-52); Hemoglobin 13.5 g/dL (14.0-18.0); Lymphocyte % 13.9 %; Mean Corpuscular HGB Conc 33 g/dL (31-36); Mean Corpuscular Hemoglobin 32 pg (27-31); Mean Corpuscular Volume 96 fL (80-94); Nucleated Red Blood Cells % 0.1; Platelet Count 157 10^3/uL (150-450); Red Blood Count 4.24 10^6 /uL (4.18-5.48); Red Cell Distribution Width 14 % (10-15)
[2020-07-11] MEDS: Mometasone/Formoter 100/5 MDI INH SCH ×2 (08:24→19:34)
[2020-07-11] MEDS: Cholecalciferol (VIT D3) 1,000 unit TAB PO SCH (10:39)
[2020-07-11] MEDS: Isosorbide Mononit ER 30mg TAB PO SCH (10:43)
[2020-07-11] MEDS: CMCS:OMEGA-3 FATTY ACID 1000 mg(NF) PO SCH (10:44)
[2020-07-11] MEDS: Vitamin THERAPEUTIC TAB PO SCH (10:48)
[2020-07-11 10:49] LABS: Erythrocyte Sed Rate 60 mm/Hr (0-19)
[2020-07-11] MEDS: Clotrimazole 1% CREAM 30 gm TOPICAL SCH ×2 (11:18→19:37)
[2020-07-11] MEDS: Enoxaparin 40 MG/0.4 ML SYR SUBCUT SCH (13:57)
[2020-07-11] MEDS ORDERED: Lactated Ringers 1000 ml BAG 1,000 ML IV SCH ×3 (17:36→19:44)
[2020-07-11] MEDS ORDERED: LACTATED RINGERS 1000 ML BAG IV SCH (22:00)
[2020-07-11] MEDS ORDERED: Metoprolol Tartrate 5 mg VIAL 5 ml VIAL (1 mg/ml) IV PRN (23:32)
[2020-07-11] MEDS ORDERED: Azithromycin 500 mg/250 ml NS 500 MG/250 ML BAG IVPB SCH (23:45)
[2020-07-11] MEDS ORDERED: cefTRIAXone 1 gm/50 mL NS BAG 1 GM/50 ML BAG IVPB SCH (23:45)
[2020-07-12] MEDS ORDERED: Piperacillin/Tazobac ADVAN 3.375 GM in NS 0.9% 100 ml BAG 100 ML IVPB ONE (00:05)
[2020-07-12] MEDS ORDERED: Zosyn per Pharmacy NOTE FOLLOW UP SCH (01:00)
[2020-07-12] MEDS: ZOSYN 3.375 GM Q8H per EXTENDED INFUSION IV SCH ×2 (04:38→13:11)
[2020-07-12 06:37] LABS: BUN/Creatinine Ratio 23.3 (8-20); Blood Urea Nitrogen 27 mg/dL (6-24); CO2 Carbon Dioxide 24 mmol/L (22-32); Calcium 8.9 mg/dL (8.6-10.3); EGFR African American 73.5 (>60); EGFR Non-African American 60.7 (>60); Glucose 183 mg/dL (70-100); Sodium 144 mmol/L (135-145)
[2020-07-12 06:45] LABS: Anion Gap 7 mmol/L (2-11); Chloride 113 mmol/L (101-111)
[2020-07-12] MEDS: Mometasone/Formoter 100/5 MDI INH SCH (07:55)
[2020-07-12] MEDS: Magnesium Hydroxide LIQ 30 ML UDC PO SCH ×3 (08:15→20:55)
[2020-07-12] MEDS: Isosorbide Mononit ER 30mg TAB PO SCH (08:15)
[2020-07-12] MEDS: CMCS:OMEGA-3 FATTY ACID 1000 mg(NF) PO SCH (08:15)
[2020-07-12] MEDS: Cholecalciferol (VIT D3) 1,000 unit TAB PO SCH (08:15)
[2020-07-12] MEDS: Clotrimazole 1% CREAM 30 gm TOPICAL SCH ×3 (08:18→20:55)
[2020-07-12] MEDS: Vitamin THERAPEUTIC TAB PO SCH (08:19)
[2020-07-12] MEDS ORDERED: Remdesivir 100 mg Vial 200 MG in NS 0.9% 250 ml 210 ML IV ONE (10:17)
[2020-07-12 11:26] LABS: ALT 18 U/L (7-52); AST 21 U/L (13-39); Albumin 3.4 g/dL (3.2-5.2); Albumin/Globulin Ratio 1.2 (1-3); Alkaline Phosphatase 82 U/L (34-104); Globulin 2.9 g/dL (2-4); Total Protein 6.3 g/dL (6.4-8.9)
[2020-07-12 12:26] LABS: Urine Appearance Cloudy; Urine Bilirubin Negative (Negative); Urine Blood Negative (Negative); Urine Color Yellow; Urine Glucose Negative (Negative); Urine Ketones Negative (Negative); Urine Nitrite Negative (Negative); Urine Protein 2+(100 mg/dL) (Negative); Urine Specific Gravity 1.017 (1.010-1.030); Urine Urobilinogen Negative (Negative)
[2020-07-12 12:39] LABS: Urine Bacteria Absent (Absent); Urine Red Blood Cell Absent (Absent); Urine White Blood Cell 3+(>20/hpf) (Absent)
[2020-07-12] MEDS: Enoxaparin 40 MG/0.4 ML SYR SUBCUT SCH (13:13)
[2020-07-13] MEDS: Mometasone/Formoter 100/5 MDI INH SCH ×3 (06:42→20:30)
[2020-07-13 07:51] LABS: ABS Lymphocytes 1.3 10^3/ul (1.0-4.8); ABS Monocytes 0.8 10^3/ul (0-0.8); ABS Neutrophils 4.9 10^3/ul (1.5-7.7); Eosinophil % 0.4 %; Hematocrit 37 % (42-52); Hemoglobin 12.4 g/dL (14.0-18.0); Lymphocyte % 18.4 %; Mean Corpuscular HGB Conc 34 g/dL (31-36); Mean Corpuscular Hemoglobin 32 pg (27-31); Mean Corpuscular Volume 95 fL (80-94); Mean Platelet Volume 9.1 fL (7.4-10.4); Platelet Count 155 10^3/uL (150-450); Red Blood Count 3.88 10^6 /uL (4.18-5.48); Red Cell Distribution Width 14 % (10-15)
[2020-07-13 08:07] LABS: BUN/Creatinine Ratio 26.2 (8-20); EGFR Non-African American 66.7 (>60)
[2020-07-13 08:08] LABS: EGFR African American 80.7 (>60)
[2020-07-13 08:51] LABS: Calcium 9.1 mg/dL (8.6-10.3)
[2020-07-13] MEDS: Magnesium Hydroxide LIQ 30 ML UDC PO SCH ×3 (09:47→21:39)
[2020-07-13] MEDS: Isosorbide Mononit ER 30mg TAB PO SCH (09:47)
[2020-07-13] MEDS: CMCS:OMEGA-3 FATTY ACID 1000 mg(NF) PO SCH (09:47)
[2020-07-13] MEDS: Vitamin THERAPEUTIC TAB PO SCH (09:47)
[2020-07-13] MEDS: Cholecalciferol (VIT D3) 1,000 unit TAB PO SCH (09:47)
[2020-07-13] MEDS: Remdesivir 100 mg Vial 100 MG in NS 0.9% 250 ml 230 ML IV SCH (09:48)
[2020-07-13] MEDS: Clotrimazole 1% CREAM 30 gm TOPICAL SCH ×2 (09:50→21:39)
[2020-07-13] MEDS: Enoxaparin 40 MG/0.4 ML SYR SUBCUT SCH (13:54)
[2020-07-14 06:07] LABS: ABS Lymphocytes 1.3 10^3/ul (1.0-4.8); ABS Monocytes 0.6 10^3/ul (0-0.8); ABS Neutrophils 5.3 10^3/ul (1.5-7.7); Hematocrit 39 % (42-52); Hemoglobin 13.5 g/dL (14.0-18.0); Lymphocyte % 17.5 %; Mean Corpuscular HGB Conc 35 g/dL (31-36); Mean Corpuscular Hemoglobin 32 pg (27-31); Mean Corpuscular Volume 93 fL (80-94); Mean Platelet Volume 9.2 fL (7.4-10.4); Platelet Count 236 10^3/uL (150-450); Red Blood Count 4.18 10^6 /uL (4.18-5.48); Red Cell Distribution Width 14 % (10-15); White Blood Count 7.2 10^3/uL (3.5-10.8)
[2020-07-14] MEDS: Mometasone/Formoter 100/5 MDI INH SCH ×2 (07:27→20:14)
[2020-07-14] MEDS: Magnesium Hydroxide LIQ 30 ML UDC PO SCH ×2 (08:59→19:37)
[2020-07-14] MEDS: CMCS:OMEGA-3 FATTY ACID 1000 mg(NF) PO SCH (09:00)
[2020-07-14] MEDS: Cholecalciferol (VIT D3) 1,000 unit TAB PO SCH (09:00)
[2020-07-14] MEDS: Vitamin THERAPEUTIC TAB PO SCH (09:00)
[2020-07-14] MEDS: Isosorbide Mononit ER 30mg TAB PO SCH (09:00)
[2020-07-14] MEDS: Clotrimazole 1% CREAM 30 gm TOPICAL SCH ×2 (09:06→20:19)
[2020-07-14] MEDS: Remdesivir 100 mg Vial 100 MG in NS 0.9% 250 ml 230 ML IV SCH ×2 (12:04→17:18)
[2020-07-14] MEDS: Enoxaparin 40 MG/0.4 ML SYR SUBCUT SCH ×2 (13:08→20:19)
[2020-07-15] MEDS: Mometasone/Formoter 100/5 MDI INH SCH ×2 (08:14→22:43)
[2020-07-15] MEDS: Remdesivir 100 mg Vial 100 MG in NS 0.9% 250 ml 230 ML IV SCH (09:06)
[2020-07-15] MEDS: Magnesium Hydroxide LIQ 30 ML UDC PO SCH ×2 (09:27→22:24)
[2020-07-15] MEDS: CMCS:OMEGA-3 FATTY ACID 1000 mg(NF) PO SCH (09:28)
[2020-07-15] MEDS: Vitamin THERAPEUTIC TAB PO SCH (09:28)
[2020-07-15] MEDS: Cholecalciferol (VIT D3) 1,000 unit TAB PO SCH (09:28)
[2020-07-15] MEDS: Isosorbide Mononit ER 30mg TAB PO SCH (09:29)
[2020-07-15] MEDS: Enoxaparin 40 MG/0.4 ML SYR SUBCUT SCH ×2 (09:29→22:24)
[2020-07-15] MEDS: Clotrimazole 1% CREAM 30 gm TOPICAL SCH ×2 (09:29→22:43)
[2020-07-16] MEDS: Cholecalciferol (VIT D3) 1,000 unit TAB PO SCH (07:54)
[2020-07-16] MEDS: Vitamin THERAPEUTIC TAB PO SCH (07:55)
[2020-07-16] MEDS: Isosorbide Mononit ER 30mg TAB PO SCH (07:55)
[2020-07-16] MEDS: Magnesium Hydroxide LIQ 30 ML UDC PO SCH ×2 (07:56→20:21)
[2020-07-16] MEDS: CMCS:OMEGA-3 FATTY ACID 1000 mg(NF) PO SCH (07:56)
[2020-07-16] MEDS: Mometasone/Formoter 100/5 MDI INH SCH ×2 (07:57→20:24)
[2020-07-16] MEDS: Enoxaparin 40 MG/0.4 ML SYR SUBCUT SCH (08:08)
[2020-07-16] MEDS: Clotrimazole 1% CREAM 30 gm TOPICAL SCH ×2 (08:10→20:45)
[2020-07-16] MEDS: Remdesivir 100 mg Vial 100 MG in NS 0.9% 250 ml 230 ML IV SCH (09:56)
[2020-07-16] MEDS ORDERED: Albuterol HFA INHALER 8 gm MDI INH PRN (14:15)
[2020-07-16] MEDS: Metoprolol Tartrate 5 mg VIAL 5 ml VIAL (1 mg/ml) IV PRN ×5 (14:31→14:46)
[2020-07-16] MEDS ORDERED: Enoxaparin 40 MG/0.4 ML SYR SUBCUT ONE (14:56)
[2020-07-16] MEDS ORDERED: Diltiazem (ADVAN VIAL) 100 MG/100 ML ADDV.BAG IV SCH (15:00)
[2020-07-16 15:29] LABS: ABS Basophils 0.1 10^3/ul (0-0.2); ABS Eosinophils 0.1 10^3/ul (0-0.6); ABS Lymphocytes 1.9 10^3/ul (1.0-4.8); ABS Monocytes 1.1 10^3/ul (0-0.8); ABS Neutrophils 9.1 10^3/ul (1.5-7.7); Eosinophil % 0.5 %; Hematocrit 37 % (42-52); Hemoglobin 12.7 g/dL (14.0-18.0); Lymphocyte % 15.7 %; Mean Corpuscular HGB Conc 34 g/dL (31-36); Mean Corpuscular Hemoglobin 32 pg (27-31); Mean Corpuscular Volume 93 fL (80-94); Mean Platelet Volume 9.1 fL (7.4-10.4); Platelet Count 247 10^3/uL (150-450); Red Blood Count 3.98 10^6 /uL (4.18-5.48); Red Cell Distribution Width 14 % (10-15); White Blood Count 12.2 10^3/uL (3.5-10.8)
[2020-07-16 15:44] LABS: Anion Gap 10 mmol/L (2-11); CO2 Carbon Dioxide 18 mmol/L (22-32); Calcium 9.1 mg/dL (8.6-10.3); Chloride 105 mmol/L (101-111); Magnesium 1.7 mg/dL (1.9-2.7); Potassium 4.1 mmol/L (3.5-5.0); Sodium 133 mmol/L (135-145)
[2020-07-16 15:50] LABS: BUN/Creatinine Ratio 26.9 (8-20); Blood Urea Nitrogen 32 mg/dL (6-24); EGFR African American 71.4 (>60); Glucose 327 mg/dL (70-100)
[2020-07-16 15:54] LABS: Troponin I 0.08 ng/mL (<0.03)
[2020-07-16] MEDS ORDERED: NS 0.9% 1000 ml BAG 1,000 ML IV ONE (15:54)
[2020-07-16] MEDS ORDERED: Magnesium Sulfate 2 gm BAG 2 GM/50 ML BAG IVPB ONE (15:55)
[2020-07-16 17:51] LABS: Troponin I 0.08 ng/mL (<0.03)
[2020-07-16] MEDS: cefTRIAXone 1 gm/50 mL NS BAG 1 GM/50 ML BAG IVPB SCH (20:10)
[2020-07-16] MEDS: DOXYcycline 100 MG in NS 0.9% 250 ml 250 ML IVPB SCH (20:16)
[2020-07-16] MEDS: Enoxaparin 100 MG/ML SYR SUBCUT SCH (20:17)
[2020-07-17 06:18] LABS: ABS Basophils 0.1 10^3/ul (0-0.2); ABS Eosinophils 0.1 10^3/ul (0-0.6); ABS Lymphocytes 2.4 10^3/ul (1.0-4.8); ABS Neutrophils 8.3 10^3/ul (1.5-7.7); Eosinophil % 1.1 %; Hematocrit 39 % (42-52); Hemoglobin 13.5 g/dL (14.0-18.0); Lymphocyte % 20.1 %; Mean Corpuscular HGB Conc 35 g/dL (31-36); Mean Corpuscular Hemoglobin 32 pg (27-31); Mean Corpuscular Volume 92 fL (80-94); Mean Platelet Volume 9.1 fL (7.4-10.4); Platelet Count 236 10^3/uL (150-450); Red Blood Count 4.26 10^6 /uL (4.18-5.48); Red Cell Distribution Width 14 % (10-15); White Blood Count 11.9 10^3/uL (3.5-10.8)
[2020-07-17 06:31] LABS: Albumin 3.3 g/dL (3.2-5.2); Albumin/Globulin Ratio 1.2 (1-3); BUN/Creatinine Ratio 23.9 (8-20); EGFR Non-African American 79.4 (>60); Globulin 2.8 g/dL (2-4); Magnesium 1.9 mg/dL (1.9-2.7); Potassium 3.7 mmol/L (3.5-5.0); Total Bilirubin 0.4 mg/dL (0.2-1.0); Total Protein 6.1 g/dL (6.4-8.9)
[2020-07-17] MEDS ORDERED: Dextrose 50% Syringe 50 ml 25 GM/50 ML SYRINGE IV PUSH PRN (08:16)
[2020-07-17] MEDS: Diltiazem (ADVAN VIAL) 100 MG/100 ML ADDV.BAG IV SCH ×2 (08:16→09:39)
[2020-07-17] MEDS: Vitamin THERAPEUTIC TAB PO SCH (08:21)
[2020-07-17] MEDS: Magnesium Hydroxide LIQ 30 ML UDC PO SCH ×2 (08:21→20:59)
[2020-07-17] MEDS: Enoxaparin 100 MG/ML SYR SUBCUT SCH (08:21)
[2020-07-17] MEDS: Cholecalciferol (VIT D3) 1,000 unit TAB PO SCH (08:22)
[2020-07-17] MEDS ORDERED: Magnesium Sulfate IV 1GM/100ML 1 GM/100 ML BAG IV ONE (08:47)
[2020-07-17] MEDS ORDERED: NS 0.9% 1000 ml BAG 1,000 ML IV SCH (09:00)
[2020-07-17] MEDS ORDERED: Diltiazem (ADVAN VIAL) 100 MG/100 ML ADDV.BAG IV SCH (10:19)
[2020-07-17] MEDS: Clotrimazole 1% CREAM 30 gm TOPICAL SCH ×2 (10:43→22:13)
[2020-07-17] MEDS ORDERED: Iodixanol (CONTRAST) 320 MG/ML 100 ML SDV IV ONE (10:47)
[2020-07-17] MEDS: DOXYcycline 100 MG in NS 0.9% 250 ml 250 ML IVPB SCH ×2 (11:19→20:57)
[2020-07-17] MEDS: Mometasone/Formoter 100/5 MDI INH SCH ×2 (11:24→20:24)
[2020-07-17] MEDS: CMCS:OMEGA-3 FATTY ACID 1000 mg(NF) PO SCH (11:39)
[2020-07-17] MEDS: cefTRIAXone 1 gm/50 mL NS BAG 1 GM/50 ML BAG IVPB SCH (18:21)
[2020-07-18] MEDS: Mometasone/Formoter 100/5 MDI INH SCH (07:26)
[2020-07-18 07:48] LABS: ABS Basophils 0.1 10^3/ul (0-0.2); ABS Eosinophils 0.2 10^3/ul (0-0.6); ABS Monocytes 0.8 10^3/ul (0-0.8); ABS Neutrophils 8.4 10^3/ul (1.5-7.7); Hematocrit 38 % (42-52); Hemoglobin 12.8 g/dL (14.0-18.0); Lymphocyte % 17.7 %; Mean Corpuscular HGB Conc 34 g/dL (31-36); Mean Corpuscular Hemoglobin 31 pg (27-31); Mean Corpuscular Volume 94 fL (80-94); Mean Platelet Volume 9.1 fL (7.4-10.4); Platelet Count 241 10^3/uL (150-450); Red Blood Count 4.07 10^6 /uL (4.18-5.48); Red Cell Distribution Width 14 % (10-15); White Blood Count 11.5 10^3/uL (3.5-10.8)
[2020-07-18] MEDS: DOXYcycline 100 MG in NS 0.9% 250 ml 250 ML IVPB SCH (08:31)
[2020-07-18] MEDS: Magnesium Hydroxide LIQ 30 ML UDC PO SCH (08:31)
[2020-07-18] MEDS: Cholecalciferol (VIT D3) 1,000 unit TAB PO SCH (08:32)
[2020-07-18] MEDS: Clotrimazole 1% CREAM 30 gm TOPICAL SCH (08:33)
[2020-07-18] MEDS: CMCS:OMEGA-3 FATTY ACID 1000 mg(NF) PO SCH (08:33)
[2020-07-18] MEDS: Vitamin THERAPEUTIC TAB PO SCH (08:33)
[2020-07-18 09:35] LABS: Calcium 9.1 mg/dL (8.6-10.3); EGFR African American 99.8 (>60); EGFR Non-African American 82.5 (>60); Magnesium 1.8 mg/dL (1.9-2.7); Potassium 3.7 mmol/L (3.5-5.0)
[2020-07-18] MEDS ORDERED: Magnesium Sulfate IV 1GM/100ML 1 GM/100 ML BAG IV ONE (10:05)
[2020-07-18 12:11] VITALS: BP 153/81
== END 2020-07-18 16:25 | DRG 871 ==
LOC: ED 02:17 → MED 04:01 → MEDTELE 07-16 17:14
PROVIDERS: ADMIT Internal Medicine; ATTEND Internal Medicine

== ENCOUNTER 2022-03-27 17:36 | Inpatient (IN) ==
[2022-03-27 22:14] LABS: ABS Basophils 0.1 10^3/ul (0-0.2); ABS Eosinophils 0.6 10^3/ul (0-0.6); ABS Lymphocytes 2.6 10^3/ul (1.0-4.8); ABS Monocytes 0.9 10^3/ul (0-0.8); ABS Neutrophils 7.7 10^3/ul (1.5-7.7); Eosinophil % 4.7 %; Hematocrit 37 % (42-52); Hemoglobin 12.3 g/dL (14.0-18.0); Lymphocyte % 21.6 %; Mean Corpuscular HGB Conc 34 g/dL (31-36); Mean Corpuscular Hemoglobin 32 pg (27-31); Mean Corpuscular Volume 96 fL (80-94); Mean Platelet Volume 7.8 fL (7.4-10.4); Platelet Count 168 10^3/uL (150-450); Red Blood Count 3.84 10^6 /uL (4.18-5.48); Red Cell Distribution Width 15 % (10-15); White Blood Count 11.9 10^3/uL (3.5-10.8)
[2022-03-27 22:19] LABS: INR 1.23 (0.89-1.11)
[2022-03-27 22:46] LABS: Albumin 4.1 g/dL (3.2-5.2); Albumin/Globulin Ratio 1.9 (1-3); Calcium 9.4 mg/dL (8.6-10.3); Globulin 2.2 g/dL (2-4); Potassium 3.7 mmol/L (3.5-5.0); Total Bilirubin 0.4 mg/dL (0.2-1.0); Total Protein 6.3 g/dL (6.4-8.9)
[2022-03-28 01:13] LABS: Urine Appearance Turbid; Urine Bilirubin Negative (Negative); Urine Blood Negative (Negative); Urine Color Yellow; Urine Glucose Negative (Negative); Urine Ketones Negative (Negative); Urine Nitrite Negative (Negative); Urine Protein 2+(100 mg/dL) (Negative); Urine Specific Gravity 1.012 (1.002-1.030); Urine Urobilinogen Negative (Negative)
[2022-03-28 01:34] LABS: Urine Bacteria Absent (Absent); Urine Red Blood Cell 3+(>10/hpf) (Absent); Urine White Blood Cell 3+(>20/hpf) (Absent)
[2022-03-28] MEDS ORDERED: hydrALAZINE 20 mg/ml 1 ML Vial IV IV SLOW PU ONE ×2 (03:11→04:09)
[2022-03-28] MEDS: Isosorbide Mononit ER 30mg TAB PO SCH (05:04)
[2022-03-29 06:03] LABS: ABS Basophils 0.1 10^3/ul (0-0.2); ABS Eosinophils 0.6 10^3/ul (0-0.6); ABS Lymphocytes 2.4 10^3/ul (1.0-4.8); ABS Monocytes 0.9 10^3/ul (0-0.8); ABS Neutrophils 6.3 10^3/ul (1.5-7.7); Hematocrit 39 % (42-52); Hemoglobin 12.9 g/dL (14.0-18.0); Lymphocyte % 23.4 %; Mean Corpuscular HGB Conc 34 g/dL (31-36); Mean Corpuscular Hemoglobin 32 pg (27-31); Mean Corpuscular Volume 95 fL (80-94); Mean Platelet Volume 7.8 fL (7.4-10.4); Nucleated Red Blood Cells % 0.1; Platelet Count 175 10^3/uL (150-450); Red Blood Count 4.04 10^6 /uL (4.18-5.48); Red Cell Distribution Width 15 % (10-15); White Blood Count 10.3 10^3/uL (3.5-10.8)
[2022-03-29 06:23] LABS: Calcium 9.4 mg/dL (8.6-10.3); Potassium 3.5 mmol/L (3.5-5.0); eGFR CKD-EPI 67.4 (>60)
[2022-03-29] MEDS: Isosorbide Mononit ER 30mg TAB PO SCH (07:54)
[2022-03-30] MEDS: Isosorbide Mononit ER 30mg TAB PO SCH (09:35)
[2022-03-31] MEDS: Isosorbide Mononit ER 30mg TAB PO SCH (09:30)
[2022-03-31 12:26] LABS: Rapid COVID-19 Molecular Undetected (Undetected)
[2022-03-31 12:45] VITALS: BP 106/62
== END 2022-03-31 12:45 | DRG 813 ==
LOC: INTOOBSV 19:02 → MEDTELE 19:02 → SUATTDRO 03-29 09:58
PROVIDERS: ADMIT Internal Medicine; ATTEND Hospitalist

== ENCOUNTER 2022-04-21 10:15 | Inpatient (IN) ==
[2022-04-21 11:00] LABS: ABS Basophils 0.1 10^3/ul (0-0.2); ABS Eosinophils 0.3 10^3/ul (0-0.6); ABS Lymphocytes 1.5 10^3/ul (1.0-4.8); ABS Monocytes 0.9 10^3/ul (0-0.8); ABS Neutrophils 9.4 10^3/ul (1.5-7.7); Eosinophil % 2.1 %; Hematocrit 39 % (42-52); Hemoglobin 12.6 g/dL (14.0-18.0); Lymphocyte % 12.2 %; Mean Corpuscular HGB Conc 33 g/dL (31-36); Mean Corpuscular Hemoglobin 32 pg (27-31); Mean Corpuscular Volume 98 fL (80-94); Mean Platelet Volume 8.9 fL (7.4-10.4); Platelet Count 179 10^3/uL (150-450); Red Blood Count 3.94 10^6 /uL (4.18-5.48); Red Cell Distribution Width 15 % (10-15); White Blood Count 12.2 10^3/uL (3.5-10.8)
[2022-04-21 11:41] LABS: Albumin/Globulin Ratio 1.6 (1-3); Calcium 9.7 mg/dL (8.6-10.3); Globulin 2.5 g/dL (2-4); Total Bilirubin 0.3 mg/dL (0.2-1.0); Total Protein 6.5 g/dL (6.4-8.9); eGFR CKD-EPI 21.2 (>60)
[2022-04-21 11:44] LABS: Potassium 5.8 mmol/L (3.5-5.0)
[2022-04-21 12:31] LABS: High Sensitivity Troponin 1 Hr 5 pg/mL (<20)
[2022-04-21] MEDS ORDERED: Lactated Ringers 1000 ml BAG 1,000 ML IV ONE ×2 (12:35→12:50)
[2022-04-21] MEDS ORDERED: Dextrose 50% Syringe 50 ml 25 GM/50 ML SYRINGE IV PUSH PRN (15:12)
[2022-04-21 16:59] LABS: Calcium 9.5 mg/dL (8.6-10.3); eGFR CKD-EPI 26.4 (>60)
[2022-04-21 17:04] LABS: Potassium 5.3 mmol/L (3.5-5.0)
[2022-04-21] MEDS: Lactated Ringers 1000 ml BAG 1,000 ML IV SCH (17:31)
[2022-04-21 18:48] LABS: Urine Appearance Turbid; Urine Bacteria 2+ (Absent); Urine Bilirubin Negative (Negative); Urine Blood 1+ (Negative); Urine Glucose Negative (Negative); Urine Ketones Negative (Negative); Urine Nitrite Negative (Negative); Urine Protein 1+(30 mg/dL) (Negative); Urine Red Blood Cell 2+(6-10/hpf) (Absent); Urine Squamous Epithelial Cell Present (Absent); Urine Transitional Epithelial Present (Absent); Urine Urobilinogen Negative (Negative); Urine White Blood Cell 3+(>20/hpf) (Absent)
[2022-04-21 18:54] LABS: Urine Color Straw
[2022-04-21] MEDS: cefTRIAXone 1 gm/50 mL D5W 1 GM/50 ML BAG IV SCH (23:04)
[2022-04-22] MEDS: Lactated Ringers 1000 ml BAG 1,000 ML IV SCH (05:27)
[2022-04-22 05:55] LABS: ABS Basophils 0.1 10^3/ul (0-0.2); ABS Eosinophils 0.5 10^3/ul (0-0.6); ABS Lymphocytes 1.6 10^3/ul (1.0-4.8); ABS Monocytes 0.8 10^3/ul (0-0.8); ABS Neutrophils 9.7 10^3/ul (1.5-7.7); Eosinophil % 3.8 %; Hematocrit 38 % (42-52); Hemoglobin 12.2 g/dL (14.0-18.0); Mean Corpuscular HGB Conc 32 g/dL (31-36); Mean Corpuscular Hemoglobin 31 pg (27-31); Mean Corpuscular Volume 97 fL (80-94); Mean Platelet Volume 8.6 fL (7.4-10.4); Platelet Count 160 10^3/uL (150-450); Red Blood Count 3.92 10^6 /uL (4.18-5.48); Red Cell Distribution Width 15 % (10-15); White Blood Count 12.7 10^3/uL (3.5-10.8)
[2022-04-22 06:11] LABS: Calcium 9.4 mg/dL (8.6-10.3); Potassium 4.9 mmol/L (3.5-5.0); eGFR CKD-EPI 34.8 (>60)
[2022-04-22] MEDS ORDERED: Lactated Ringers 1000 ml BAG 1,000 ML IV ONE (11:37)
[2022-04-22] MEDS: Mometasone/Formoter 100/5 MDI INH SCH (19:25)
[2022-04-22] MEDS: cefTRIAXone 1 gm/50 mL D5W 1 GM/50 ML BAG IV SCH (23:25)
[2022-04-23 05:43] LABS: ABS Basophils 0.1 10^3/ul (0-0.2); ABS Eosinophils 0.4 10^3/ul (0-0.6); ABS Lymphocytes 2.3 10^3/ul (1.0-4.8); ABS Monocytes 0.8 10^3/ul (0-0.8); ABS Neutrophils 7.9 10^3/ul (1.5-7.7); Eosinophil % 3.7 %; Hematocrit 36 % (42-52); Hemoglobin 11.9 g/dL (14.0-18.0); Lymphocyte % 20.2 %; Mean Corpuscular HGB Conc 33 g/dL (31-36); Mean Corpuscular Hemoglobin 32 pg (27-31); Mean Corpuscular Volume 97 fL (80-94); Mean Platelet Volume 8.7 fL (7.4-10.4); Platelet Count 157 10^3/uL (150-450); Red Blood Count 3.67 10^6 /uL (4.18-5.48); Red Cell Distribution Width 15 % (10-15); White Blood Count 11.5 10^3/uL (3.5-10.8)
[2022-04-23 06:19] LABS: Calcium 9.2 mg/dL (8.6-10.3); Potassium 4.4 mmol/L (3.5-5.0)
[2022-04-23] MEDS ORDERED: Isosorbide Mononit ER 30mg TAB PO SCH (09:00)
[2022-04-23] MEDS: Multivitamins/Minerals TAB PO SCH (09:10)
[2022-04-23] MEDS: Mometasone/Formoter 100/5 MDI INH SCH ×2 (09:28→20:10)
[2022-04-23] MEDS: D5W 1/2 NS 1000 ml BAG 1,000 ML IV SCH (10:50)
[2022-04-23] MEDS: AZTREONAM 1 GM in SODIUM CHLORIDE 0.9% 50 ML IV SCH ×2 (11:12→23:01)
[2022-04-24] MEDS: D5W 1/2 NS 1000 ml BAG 1,000 ML IV SCH ×3 (00:20→21:48)
[2022-04-24 05:51] LABS: Hematocrit 35 % (42-52); Hemoglobin 11.5 g/dL (14.0-18.0); Mean Corpuscular HGB Conc 33 g/dL (31-36); Mean Corpuscular Hemoglobin 33 pg (27-31); Mean Corpuscular Volume 98 fL (80-94); Mean Platelet Volume 8.7 fL (7.4-10.4); Platelet Count 147 10^3/uL (150-450); Red Blood Count 3.54 10^6 /uL (4.18-5.48); Red Cell Distribution Width 15 % (10-15); White Blood Count 8.8 10^3/uL (3.5-10.8)
[2022-04-24 06:08] LABS: Calcium 9.5 mg/dL (8.6-10.3); Potassium 4.6 mmol/L (3.5-5.0); eGFR CKD-EPI 61.4 (>60)
[2022-04-24] MEDS: Mometasone/Formoter 100/5 MDI INH SCH ×2 (07:59→19:58)
[2022-04-24] MEDS: Multivitamins/Minerals TAB PO SCH (10:19)
[2022-04-24] MEDS: AZTREONAM 1 GM in SODIUM CHLORIDE 0.9% 50 ML IV SCH ×2 (12:10→22:52)
[2022-04-24] MEDS: Multivitamins ADULT w/MIN LIQ 15 ML UDC PO SCH (12:11)
[2022-04-25] MEDS ORDERED: Metoprolol Tartrate 5 mg VIAL 5 ml VIAL (1 mg/ml) IV ONE ×2 (06:06→06:42)
[2022-04-25] MEDS: Mometasone/Formoter 100/5 MDI INH SCH ×2 (07:54→20:22)
[2022-04-25] MEDS: D5W 1/2 NS 1000 ml BAG 1,000 ML IV SCH (08:02)
[2022-04-25] MEDS: Multivitamins ADULT w/MIN LIQ 15 ML UDC PO SCH (08:03)
[2022-04-25] MEDS: AZTREONAM 1 GM in SODIUM CHLORIDE 0.9% 50 ML IV SCH ×2 (11:42→22:33)
[2022-04-25 13:28] LABS: Calcium 8.8 mg/dL (8.6-10.3); Potassium 4.2 mmol/L (3.5-5.0); eGFR CKD-EPI 78.4 (>60)
[2022-04-26] MEDS: Mometasone/Formoter 100/5 MDI INH SCH ×2 (07:33→20:33)
[2022-04-26] MEDS ORDERED: D5W 500 ml BAG 500 ML IV SCH (07:45)
[2022-04-26] MEDS: Multivitamins ADULT w/MIN LIQ 15 ML UDC PO SCH (08:42)
[2022-04-26] MEDS: AZTREONAM 1 GM in SODIUM CHLORIDE 0.9% 50 ML IV SCH ×2 (11:26→22:51)
[2022-04-27 07:43] LABS: Calcium 8.6 mg/dL (8.6-10.3); Potassium 3.7 mmol/L (3.5-5.0); eGFR CKD-EPI 80.4 (>60)
[2022-04-27] MEDS: Mometasone/Formoter 100/5 MDI INH SCH ×2 (07:54→19:54)
[2022-04-27] MEDS: Multivitamins ADULT w/MIN LIQ 15 ML UDC PO SCH (08:57)
[2022-04-27] MEDS: AZTREONAM 1 GM in SODIUM CHLORIDE 0.9% 50 ML IV SCH ×2 (11:39→22:55)
[2022-04-27 14:53] LABS: PSA Screening Total 0.028 ng/mL (0-4.000)
[2022-04-27] MEDS ORDERED: NS 0.9% 1000 ml BAG 1,000 ML IV SCH (16:30)
[2022-04-27 16:45] LABS: Urine Appearance Clear; Urine Bilirubin Negative (Negative); Urine Blood 3+ (Negative); Urine Color Yellow; Urine Glucose 1+(50 mg/dL) (Negative); Urine Ketones Negative (Negative); Urine Nitrite Negative (Negative); Urine Protein 2+(100 mg/dL) (Negative); Urine Specific Gravity 1.012 (1.002-1.030); Urine Urobilinogen Negative (Negative)
[2022-04-27 16:48] LABS: Urine Bacteria Absent (Absent); Urine Red Blood Cell 3+(>10/hpf) (Absent); Urine White Blood Cell Trace(0-5/hpf) (Absent)
[2022-04-27 22:04] LABS: Rapid COVID-19 Molecular Undetected (Undetected)
[2022-04-28 06:49] LABS: Calcium 8.4 mg/dL (8.6-10.3); Magnesium 1.4 mg/dL (1.9-2.7); Potassium 3.5 mmol/L (3.5-5.0); eGFR CKD-EPI 84.7 (>60)
[2022-04-28] MEDS: Mometasone/Formoter 100/5 MDI INH SCH ×2 (08:11→19:37)
[2022-04-28] MEDS: Multivitamins ADULT w/MIN LIQ 15 ML UDC PO SCH (11:58)
[2022-04-28] MEDS: AZTREONAM 1 GM in SODIUM CHLORIDE 0.9% 50 ML IV SCH ×2 (13:19→22:53)
[2022-04-29] MEDS: Mometasone/Formoter 100/5 MDI INH SCH (07:01)
[2022-04-29 07:17] LABS: Calcium 8.8 mg/dL (8.6-10.3); Magnesium 1.6 mg/dL (1.9-2.7); Potassium 3.7 mmol/L (3.5-5.0); eGFR CKD-EPI 79.4 (>60)
[2022-04-29] MEDS ORDERED: Magnesium Sulf 4 GM/100 ML IV 4,000 MG/100 ML BAG IVPB ONE (07:46)
[2022-04-29] MEDS: Multivitamins ADULT w/MIN LIQ 15 ML UDC PO SCH (08:45)
[2022-04-29 11:31] VITALS: BP 147/76
[2022-04-29] MEDS: AZTREONAM 1 GM in SODIUM CHLORIDE 0.9% 50 ML IV SCH (13:02)
== END 2022-04-29 13:35 | DRG 683 ==
LOC: ED 10:15 → EDHOLD 10:15 → MED 15:22 → SUATTDRO 04-22 13:45
PROVIDERS: ADMIT Hospitalist; ATTEND Internal Medicine